=== PATIENT | male | born 1995 | race Caucasian/White ===

== ENCOUNTER 2017-12-15 02:43 | Emergency (ER) | payer SELFPAY ==
--- NOTE | 2017-12-15 03:21 | ED ---
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 - History Of Current Complaint Chief Complaint: EDSubstanceAbuse Stated Complaint: ETOH Time Seen by Provider: 12/15/17 03:02 Hx Obtained From: Patient Onset/Duration of Drug/ETOH Abuse: Hours Ingestion History: Type/Name Of Drug - ETOH Overdose Characteristics: Oral - Allergies/Home Medications Allergies/Adverse Reactions: Allergies Allergy/AdvReac Type Severity Reaction Status Date / Time Tree Nuts Allergy Unknown Verified 12/15/17 02:54 Reaction Details PMH/Surg Hx/FS Hx/Imm Hx Previously Healthy: No - PMHx LIMITED DUE TO LEVEL 5 CAVEAT - ETOH INTOXICATION Infectious Disease History: No Infectious Disease History: Denies: Traveled Outside the [place] in Last 30 Days - Social History Occupation: Student Lives: Dormitory/Roommates Alcohol Use: unknown Hx Substance Use: Yes Substance Use Type: Reports: Other Substance Use Comment - Amount & Last Used: unknown Hx Tobacco Use: Yes Smoking Status (MU): Unknown if Ever Smoked Review of Systems - ROS Summary Review of Systems Summary: ROS LIMITED DUE TO LEVEL 5 CAVEAT - ETOH INTOXICATION All Other Systems Reviewed And Are Negative: No Physical Exam - Summary Physical Exam Summary: PE IS LIMITED DUE TO LEVEL 5 CAVEAT - ETOH INTOXICATION Appearance: Well-appearing, Well-nourished, lying in bed comfortable Skin: Warm, dry, no obvious rash Eyes: sclera anicteric, no conjunctival pallor ENT: mucous membranes moist Neck: deferred Respiratory: No signs of respiratory distress Cardiovascular: Appears well perfused, pulses are nml Abdomen: deferred Musculoskeletal: Moving all 4 extremities without obvious discomfort Neurological: Awake and alert Psychiatric: affect is normal, does not appear anxious or depressed Triage Information Reviewed: Yes Vital Signs On Initial Exam: Initial Vitals Temp Pulse Resp BP Pulse Ox 96.8 F 84 16 124/78 94 12/15/17 02:50 12/15/17 02:50 12/15/17 02:50 12/15/17 02:50 12/15/17 02:50 Vital Signs Reviewed: Yes Diagnostics - Vital Signs Vital Signs Temp Pulse Resp BP Pulse Ox 12/15/17 02:50 96.8 F 84 16 124/78 94 - Laboratory Lab Statement: Any lab studies that have been ordered have been reviewed, and results considered in the medical decision making process. Course/Dx - Diagnoses Provider Diagnoses: Alcohol intoxication Discharge - Sign-Out/Discharge Documenting (check all that apply): Patient Departure - Discharge Plan Condition: Improved Disposition: HOME Patient Education Materials: Alcohol Intoxication (ED) Referrals: [facility] [Outside] [facility] [Outside] - Billing Disposition and Condition Condition: IMPROVED Disposition: Home - Attestation Statements Document Initiated by Margeibe: Yes Documenting Scribe: Marilyn Nuñez Provider For Whom Kwame is Documenting (Include Credential): Nik Spencer MD Scribe Attestation: Marilyn Durand, scribed for Nik Spencer MD on 12/15/17 at 1956. Scribe Documentation Reviewed: Yes Provider Attestation: The documentation as recorded by the Marilyn encarnacion accurately reflects the service I personally performed and the decisions made by me, Nik Spencer MD
[2017-12-15 06:27] VITALS: BP 123/84
== END 2017-12-15 06:28 | disposition home or self-care (01) ==
LOC: ED 02:43
DX: F10.129 Alcohol abuse with intoxication, unspecified (principal)
CPT/HCPCS: 99282